=== PATIENT | male | born 1975 | race African-American/Black ===

== ENCOUNTER 2021-10-02 10:16 | Emergency (ER) | payer OTHER ==
[~2021-10-02] VITALS: Ht 185.4 cm; Wt 115.7 kg
[2021-10-02] MEDS ORDERED: CLINDAMYCIN HC300 MG PO (10:46)
[2021-10-02 10:52] VITALS: BP 160/108
== END 2021-10-02 10:54 | disposition home or self-care (01) ==
LOC: M.ERS 10:16
DX: K04.7 Periapical abscess without sinus (principal)